=== PATIENT | male | born 1940 | race Caucasian/White ===

== ENCOUNTER 2018-06-05 07:59 | Emergency (ER) | payer OTHER ==
--- NOTE | 2018-06-05 08:59 | RAD REPORT ---
EXAM DESCRIPTION: RAD - Chest Pa And Lat (2 Views) - 06/05/2018 8:44 am CLINICAL HISTORY: Cough and congestion COMPARISON: None. TECHNIQUE: PA and lateral views of the chest were obtained. FINDINGS: The lungs are hyperexpanded with flattened diaphragm. Scattered fibrotic changes are prese nt without a superimposed failure, infiltrate or mass. Interstitial baseline pattern is unknown. Curr ent finding does not appear to be outside of normal range. Heart size is normal and central vasculature is within normal limits. No pleural effusion or pneu mothorax seen. No acute bony finding noted. No aortic abnormality. IMPRESSION: COPD pattern with no acute cardiopulmonary finding confirmed.
--- NOTE | 2018-06-05 09:30 | EDPHYS ---
Physician Documentation [facility] Name: Khanh Thornton Age: 78 yrs Sex: Male : 1940 Arrival Date: 06/05/2018 Time: 08:04 Bed 8 Private MD: Wilmer Mahoney C ED Physician Avery Atwood HPI: 06/05 08:22 This 78 yrs old Male presents to ER via Ambulatory with complaints of Cough, kb Congestion. 08:22 The patient or guardian reports cough, that is intermittent, described as moderate, kb with no sputum. Onset: The symptoms/episode began/occurred 4 day(s) ago. Severity of symptoms: At their worst the symptoms were moderate, in the emergency department the symptoms are unchanged. Modifying factors: The symptoms are alleviated by nothing, the symptoms are aggravated by nothing. Associated signs and symptoms: Pertinent positives: rhinorrhea, sore throat, Pertinent negatives: chest pain, diarrhea, ear ache, fever, nausea, vomiting. The patient has not experienced similar symptoms in the past. The patient has not recently seen a physician. Historical: - Allergies: 08:18 No Known Allergies; tw2 - Home Meds: 08:18 Zocor Oral [Active]; tw2 - PMHx: 08:18 Hyperlipidemia; tw2 - PSHx: 08:18 None; tw2 - Immunization history:: Adult Immunizations. - Social history:: Smoking status: . - Ebola Screening: : Patient denies travel to an Ebola-affected area in the 21 days before illness onset. ROS: 08:21 Constitutional: Negative for fever, chills, and weight loss, Cardiovascular: Negative kb for chest pain, palpitations, and edema, Abdomen/GI: Negative for abdominal pain, nausea, vomiting, diarrhea, and constipation, Back: Negative for injury and pain, MS/Extremity: Negative for injury and deformity, Skin: Negative for injury, rash, and discoloration, Neuro: Negative for headache, weakness, numbness, tingling, and seizure. 08:21 ENT: Positive for rhinorrhea, sinus congestion, sore throat. 08:21 Respiratory: Positive for cough, Negative for dyspnea on exertion, hemoptysis, orthopnea, pleurisy, shortness of breath, sputum production, wheezing. Exam: 08:21 Constitutional: This is a well developed, well nourished patient who is awake, alert, kb and in no acute distress. Head/Face: Normocephalic, atraumatic. ENT: Nares patent. No nasal discharge, no septal abnormalities noted. Tympanic membranes are normal and external auditory canals are clear. Oropharynx with no redness, swelling, or masses, exudates, or evidence of obstruction, uvula midline. Mucous membranes moist. Neck: Trachea midline, no thyromegaly or masses palpated, and no cervical lymphadenopathy. Supple, full range of motion without nuchal rigidity, or vertebral point tenderness. No Meningismus. Chest/axilla: Normal chest wall appearance and motion. Nontender with no deformity. No lesions are appreciated. Cardiovascular: Regular rate and rhythm with a normal S1 and S2. No gallops, murmurs, or rubs. Normal PMI, no JVD. No pulse deficits. Respiratory: Lungs have equal breath sounds bilaterally, clear to auscultation and percussion. No rales, rhonchi or wheezes noted. No increased work of breathing, no retractions or nasal flaring. Abdomen/GI: Soft, non-tender, with normal bowel sounds. No distension or tympany. No guarding or rebound. No evidence of tenderness throughout. Skin: Warm, dry with normal turgor. Normal color with no rashes, no lesions, and no evidence of cellulitis. MS/ Extremity: Pulses equal, no cyanosis. Neurovascular intact. Full, normal range of motion. Neuro: Awake and alert, GCS 15, oriented to person, place, time, and situation. Cranial nerves II-XII grossly intact. Motor strength 5/5 in all extremities. Sensory grossly intact. Cerebellar exam normal. Normal gait. Vital Signs: 08:16 BP 138 / 73; Pulse 84; Resp 18; Temp 98.8(O); Pulse Ox 96% on R/A; Pain 0/10; tw2 09:08 BP 129 / 68; Pulse 75; Resp 17; Pulse Ox 96% on R/A; tw2 MDM: 08:10 Patient medically screened. kb 08:22 Data reviewed: vital signs, nurses notes. Data interpreted: Pulse oximetry: on room air kb is 96 %. Interpretation: normal. 09:29 Counseling: I had a detailed discussion with the patient and/or guardian regarding: the kb historical points, exam findings, and any diagnostic results supporting the discharge/admit diagnosis, lab results, radiology results, the need for outpatient follow up, a family practitioner, to return to the emergency department if symptoms worsen or persist or if there are any questions or concerns that arise at home. 06/05 08:15 Order name: Flu; Complete Time: 09:15 kb 06/05 08:15 Order name: Strep; Complete Time: 09:15 kb 06/05 08:15 Order name: Chest Pa And Lat (2 Views) XRAY; Complete Time: 09:15 kb 06/05 08:43 Order name: Throat Culture EDMS Administered Medications: No medications were administered Disposition: 12:27 Co-signature as Attending Physician, Avery Atwood MD I agree with the assessment and kdr plan of care. Disposition: 06/05/18 09:29 Discharged to Home. Impression: Acute upper respiratory infection, unspecified. - Condition is Stable. - Discharge Instructions: Upper Respiratory Infection, Adult, Ibnr-[id number], Viral Respiratory Infection, Odly-Ro-Kuax. - Prescriptions for Tessalon Perles 100 mg Oral Capsule - take 1 capsule by ORAL route every 8 hours As needed; 15 capsule. - Medication Reconciliation Form, Thank You Letter, Antibiotic Education, Prescription Opioid Use form. - Follow up: Emergency Department; When: As needed; Reason: Worsening of condition. Follow up: Wilmer Mahoney MD; When: 2 - 3 days; Reason: Recheck today's complaints, Continuance of care, Re-evaluation by your physician. - Notes: Use an antihistamine (zyrtec, summer or claritin) and flonase daily Follow up with Dr Mahoney next week Signatures: Dispatcher [employer] EDMS Bess Corado, CORPORATE EVENTS DIRECTOR-C CORPORATE EVENTS DIRECTOR-Avery Brewer MD MD kdr Wise, Tara RN RN tw2 Corrections: (The following items were deleted from the chart) 09:48 09:29 06/05/2018 09:29 Discharged to Home. Impression: Acute upper respiratory tw2 infection, unspecified. Condition is Stable. Forms are Medication Reconciliation Form, Thank You Letter, Antibiotic Education, Prescription Opioid Use. Follow up: Emergency Department; When: As needed; Reason: Worsening of condition. Follow up: Wilmer Mahoney; When: 2 - 3 days; Reason: Recheck today's complaints, Continuance of care, Re-evaluation by your physician. kb
--- NOTE | 2018-06-05 09:30 | ER ---
Nurse's Notes [facility] Name: Khanh Thornton Age: 78 yrs Sex: Male : 1940 Arrival Date: 06/05/2018 Time: 08:04 Bed 8 Private MD: Wilmer Mahoney C Diagnosis: Acute upper respiratory infection, unspecified Presentation: 06/05 08:15 Presenting complaint: Patient states: i have had cough and congestion for 3 days, tried tw2 otc, no relief, not coughing up anything but the cough is keeping me up at night. Transition of care: patient was not received from another setting of care. Resp Distress? No respiratory distress is noted at this time. Onset of symptoms was June 05, 2018. Risk Assessment: Do you want to hurt yourself or someone else? Patient reports no desire to harm self or others. Initial Sepsis Screen: Does the patient meet any 2 criteria? No. Patient's initial sepsis screen is negative. Does the patient have a suspected source of infection? No. Patient's initial sepsis screen is negative. Care prior to arrival: None. 08:15 Method Of Arrival: Ambulatory tw2 08:15 Acuity: EVANS 4 tw2 Triage Assessment: 08:16 General: Appears in no apparent distress. Behavior is calm, cooperative, appropriate tw2 for age. Pain: Denies pain. Respiratory: Reports cough that is Breath sounds are clear bilaterally. Historical: - Allergies: 08:18 No Known Allergies; tw2 - Home Meds: 08:18 Zocor Oral [Active]; tw2 - PMHx: 08:18 Hyperlipidemia; tw2 - PSHx: 08:18 None; tw2 - Immunization history:: Adult Immunizations. - Social history:: Smoking status: . - Ebola Screening: : Patient denies travel to an Ebola-affected area in the 21 days before illness onset. Screenin:17 Abuse screen: Denies threats or abuse. Nutritional screening: No deficits noted. tw2 Tuberculosis screening: No symptoms or risk factors identified. Fall Risk None identified. Assessment: 08:18 General: Appears in no apparent distress. well groomed, Behavior is calm, cooperative, tw2 appropriate for age. Pain: Denies pain. Neuro: Level of Consciousness is awake, alert, obeys commands, Oriented to person, place, time, situation. Cardiovascular: Denies chest pain, shortness of breath, Heart tones S1 S2 Patient's skin is warm and dry. Respiratory: Reports cough that is Airway is patent Respiratory effort is even, unlabored, Respiratory pattern is regular, symmetrical, Breath sounds are clear bilaterally. GI: No signs and/or symptoms were reported involving the gastrointestinal system. : No signs and/or symptoms were reported regarding the genitourinary system. EENT: Reports nasal congestion. Derm: No signs and/or symptoms reported regarding the dermatologic system. Musculoskeletal: Range of motion: intact in all extremities. 09:09 Reassessment: Patient appears in no apparent distress at this time. No changes from tw2 previously documented assessment. Patient and/or family updated on plan of care and expected duration. Pain level reassessed. Patient is alert, oriented x 3, equal unlabored respirations, skin warm/dry/pink. 09:48 Reassessment: Patient appears in no apparent distress at this time. No changes from tw2 previously documented assessment. Patient and/or family updated on plan of care and expected duration. Pain level reassessed. Patient is alert, oriented x 3, equal unlabored respirations, skin warm/dry/pink. Vital Signs: 08:16 BP 138 / 73; Pulse 84; Resp 18; Temp 98.8(O); Pulse Ox 96% on R/A; Pain 0/10; tw2 09:08 BP 129 / 68; Pulse 75; Resp 17; Pulse Ox 96% on R/A; tw2 ED Course: 08:04 Patient arrived in ED. mr 08:04 Wilmer Mahoney MD is Private Physician. mr 08:09 Bess Corado FNP-C is [facility]. kb 08:09 Avery Atwood MD is Attending Physician. kb 08:15 Lexie King, WILIAN is Primary Nurse. tw2 08:16 Triage completed. tw2 08:16 Arm band placed on. tw2 08:17 Bed in low position. Call light in reach. Adult w/ patient. Pulse ox on. NIBP on. tw2 08:24 Flu and/or RSV swab sent to lab. Strep swab sent to lab. mh5 08:24 Strep Sent. mh5 08:24 Flu Sent. mh5 08:41 Chest Pa And Lat (2 Views) XRAY In Process Unspecified. EDMS 09:02 Throat Culture Sent. sv 09:09 No provider procedures requiring assistance completed. Patient did not have IV access tw2 during this emergency room visit. 09:29 Wilmer Mahoney MD is Referral Physician. radha Administered Medications: No medications were administered Outcome: Discharge ordered by . radha 09:48 Discharged to home ambulatory, with significant other. tw2 09:48 Condition: stable 09:48 Discharge instructions given to patient, significant other, Instructed on discharge instructions, follow up and referral plans. medication usage, Demonstrated understanding of instructions, follow-up care, medications, Prescriptions given X 1. 09:48 Patient left the ED. tw2 Signatures: Dispatcher [employer] EDMS Bess Corado, PROFESSOR OF COMMUNICATION-C PROFESSOR OF COMMUNICATION-Ninoska Allen, RN RN Jess Gross Tara, RN RN 2 Yashira Smalls [facility]
== END 2018-06-05 09:48 | disposition home or self-care (01) ==
LOC: ER 07:59
DX: J06.9 Acute upper respiratory infection, unspecified (principal)
CPT/HCPCS: 71046; 87070; 87081; 87804; 99284

== ENCOUNTER 2021-10-04 17:06 | Emergency (ER) | payer OTHER ==
--- OUTSIDE RECORDS SUMMARY | 2021-10-04 17:08 | XMS REPORT | Continuity of Care Document ---
:1940 Author Organization [facility] t Address [address] [place] [address] Dr. Chopra [address] [place] [id number] Care Team Providers Name Role Phone Goldfarb_R Attending Clinician Unavailable Dustin Attending Clinician [phone] Goldfarb_R Admitting Clinician Unavailable Payers Payer Name Policy Type Policy Number Effective Date Expiration Date Soniya HAMMOND (MEDICARE [id number] 2013 REPLACEMENT PPO) 00:00:00 Problems This patient has no known problems. Allergies, Adverse Reactions, Alerts This patient has no known allergies or adverse reactions. Medications This patient has no known medications. Procedures This patient has no known procedures. Encounters Start End Encounter Admission Attending Care Care Encounter Source Date/Time Date/Time Type Type Clinicians Facility Department ID 2021-10-04 2021-10-04 Outpatient Goldfarb_R [facility] [id number] 12:15:00 12:15:00 [id number] 2021-04-09 2021-04-09 Outpatient Goldfarb_R [facility] [id number] 02:19:00 02:19:00 [id number] [facility] 2021-04-09 2021-04-09 Outpatient Dustin, [facility] [id number] 00:00:00 00:00:00 Arash [id number] 2021-04-03 2021-04-03 Outpatient Goldfarb_R [facility] [id number] 11:55:00 11:55:00 [id number] [facility] 2021-03-20 2021-03-20 Outpatient Goldfarb_R [facility] [id number] 11:30:00 11:30:00 [id number] [facility] 2020-10-112020-10-11 Outpatient Goldfarb_R [facility] [id number] 04:31:00 04:31:00 [id number] [facility] 2020-10-04 2020-10-04 [facility] [id number] 12[facility]44:00 12:44:00 [id number] [facility] Results This patient has no known results.
[2021-10-04 17:26] LABS: Absolute Lymphocytes (CBC) 4.2 K/uL (0.7-4.9); Hematocrit 42.3 % (39.6-49.0); RBC Red Blood Cell Count 4.58 M/uL (4.33-5.43)
[2021-10-04 17:30] LABS: Protime INR 1.21
[2021-10-04 17:41] LABS: Potassium 3.8 mmol/L (3.5-5.1)
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
[2021-10-04] MEDS ORDERED: TETANUS & DIPHTHERIA TOX,ADULT 0.5 ML VIAL ONE (18:05)
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
[2021-10-04 18:54] VITALS: TEMP 98.2
[2021-10-04 18:58] VITALS: BP 124/78; O2SAT 98
== END 2021-10-04 18:49 | disposition short-term general hospital (02) ==
LOC: ER 17:06
DX: S26.00XA Unspecified injury of heart with hemopericardium, initial encounter (principal); S31.139A Puncture wound of abdominal wall without foreign body, unspecified quadrant without penetration into peritoneal cavity, initial encounter; W26.0XXA Contact with knife, initial encounter; Z20.822 Contact with and (suspected) exposure to COVID-19; Z23 Encounter for immunization; E78.5 Hyperlipidemia, unspecified
CPT/HCPCS: 85025; 80048; 36415; 85610; 82565; 85730; 71260; 74177; 71045; 90471; 90714; 99285; U0003; Q9967

== ENCOUNTER 2024-01-05 13:57 | Observation (INO) | payer OTHER ==
[2024-01-05 15:44] VITALS: BMI 20.5
[2024-01-05 16:31] LABS: Absolute Lymphocytes (CBC) 1.8 K/uL (0.7-4.9); Absolute Monocytes 1.3 K/uL (0.1-1.3); Absolute Neutrophil 8.1 K/uL (1.8-8.0); Basophils % 0.3 % (0-1.3); Eosinophils % 0.2 % (0-4.4); Hematocrit 55.8 % (39.6-49.0); Hemoglobin 18.4 g/dL (13.6-17.9); MCH 31.8 pg (27.0-35.0); MCHC 32.9 g/dL (32.0-36.0); MCV 96.5 fL (80-100); Monocytes % 11.2 % (3.3-12.3); Neutrophils % 72.3 % (41.7-73.7); Platelets 199 thou/uL (152-406); RBC Red Blood Cell Count 5.78 M/uL (4.33-5.43); Red Cell Distribution Width 14.4 % (12.1-15.2)
--- NOTE | 2024-01-05 16:34 | RAD REPORT ---
EXAM DESCRIPTION: [place] Single View01/05/2024 4:21 pm CLINICAL HISTORY: Hypotension COMPARISON: November 2003 FINDINGS: Lungs are moderately hyperaerated. Postsurgical changes involve the chest The lungs appear clear of acute infiltrate. The heart is normal size IMPRESSION: No acute abnormalities displayed
[2024-01-05] MEDS: NA CHLORIDE 0.9% 1,000 ML IV SCH (16:35)
[2024-01-05 16:52] LABS: Albumin 3.6 g/dL (3.4-5.0); Albumin/Globulin Ratio 1.1 (1.1-1.8); Anion Gap 7.3 mEq/L (5.0-15.0); Bilirubin Total 1.3 mg/dL (0.2-1.0); Globulin 3.3 g/dL (2.3-3.5); Magnesium 2.5 mg/dL (1.6-2.4); Potassium 4.3 mEq/L (3.5-5.1); Protein, Total 6.9 g/dL (6.4-8.2)
[2024-01-05 17:55] LABS: Specific Gravity 1.017 (1.005-1.030); Sqamous Epithelial None Seen /HPF (None Seen); Urine Bacteria None Seen /HPF (<20); Urine Bilirubin NEGATIVE (Negative); Urine Blood Trace (Negative); Urine Clarity Clear (Clear); Urine Color Yellow (Yellow); Urine Culture Reflex Order NOT NEEDED; Urine Glucose NEGATIVE (Negative); Urine Ketones NEGATIVE (Negative); Urine Microscopic Reflex YN ORDER UMIC; Urine Mucus Slight /HPF (None Seen); Urine Nitrite NEGATIVE (Negative); Urine Protein NEGATIVE (Negative); Urine RBC <5 /HPF (None Seen); Urine Urobilinogen Normal (Normal); Urine WBC <5 /HPF (<5); Urine pH 5.5 (5.0-7.0)
[2024-01-05] MEDS ORDERED: ALPRAZOLAM 0.25 MG TABLET PO PRN (21:19)
[2024-01-06 02:29] VITALS: O2SAT 95
[2024-01-06 06:50] LABS: Anion Gap 5.2 mEq/L (5.0-15.0); Potassium 4.2 mEq/L (3.5-5.1)
--- NOTE | 2024-01-06 08:05 | HP ---
Date of Admission: 01/05/2024 Chief Complaint: Feeling weak, fainting type of feeling, and low blood pressure. History Of Present Illness: This is an 83-year-old very pleasant male patient, who had cervical spine fusion surgery done on December 28, 2023, in [place] and day after surgery, he was started on Medrol Dosepak that he started either the day of surgery after coming home or next day. In any case, he finished Medrol Dosepak yesterday and took it as prescribed. He was sent home with Tylenol with Codeine and muscle relaxants that he has not taken any since the surgery after it was prescribed. The patient says yesterday morning, he started to have feeling of being very weak and he felt like he might faint while he was standing or walking. This feeling got somewhat better during the day. Last night, he had lot more symptoms when he went to the bathroom. Denies any fall or head injury. No nausea, vomiting, diarrhea. No blood in urine or stool. No fever. He started to check his blood pressure at home and it was low, systolic blood pressure was 90 to 95 range with pulse rate around 100 to 110. So with this symptoms, he came in to see me today. After he was evaluated, he was admitted to the hospital. At office, the patient was noted to have significant drop in his blood pressure while he was standing compared to sitting and lying down, so arrangements were made for the patient to be admitted directly to the hospital. Allergies: NO KNOWN ALLERGIES. Medications: Alprazolam 0.25 mg at bedtime as needed for sleep, famotidine 40 mg daily at bedtime, fluticasone nasal spray 1 spray each nostril 2 times a day, magnesium oxide 400 mg every other day, metoprolol tartrate 25 mg takes half a tablet 2 times a day, simvastatin 20 mg 1 tablet daily in the evening. Review of Systems: Cardiovascular: As mentioned above. All other systems reviewed and negative. Past Medical History: Significant for allergic rhinitis, restless legs syndrome, hyperlipidemia, sinus tachycardia, gastroesophageal reflux disease, liver cyst, diverticulosis, chronic kidney disease, benign prostatic hypertrophy, high PSA, insomnia, osteoporosis. Past Surgical History: Tonsillectomy, prostate biopsy in 2014 and September 2020, cervical spine surgery on December 28, 2023. Family History: Father had congestive heart failure. Mother had neuropathy. Brother had psoriasis. Social History: Negative for smoking. Use of alcohol, occasional. Physical Examination: Vital Signs: When the patient was evaluated at office, his supine blood pressure was 100/60, sitting blood pressure was 84/60, and standing blood pressure was 60/40. Pulse rate was 114, temperature 97.8, respiratory rate 15, weight 155.4 pounds, height 72 inches. General: Awake, alert, oriented, not in distress. HEENT: Head atraumatic, normocephalic. Conjunctivae nonerythematous. Sclerae white. Mouth, no thrush or edema noted. Ears/Nose, no mass, lesion, discharge noted. Neck: Supple. No JVD, lymph nodes, bruit, thyromegaly noted. Lungs: Bilateral good equal air entry. Clear to auscultation. No rhonchi. No rales. Heart: Normal heart sounds, no murmur or gallop. Abdomen: Soft, bowel sounds normal. No guarding, rigidity, tenderness, mass, hepatosplenomegaly, distention, or bruit noted. Extremities: No leg edema. No calf tenderness. Skin: No rash, ulcer, cellulitis. Lymphatics: No lymph node enlargement in neck, supraclavicular, infraclavicular region. Neuro: No focal neurological deficit. Chest: Unremarkable. External Genitalia: Deferred. Rectal: Deferred. Laboratory Data: White count 11.2, hemoglobin 18.4, platelets 199. Sodium 140, potassium 4.3, chloride 107, bicarb 30, BUN 37, creatinine 1.69, glucose 113, calcium 11, total bilirubin 1.3, AST 12, ALT 33, alkaline phosphatase 65. Random cortisol level 26.17. Urinalysis negative. Impression: 1. Hypotension. 2. Sinus tachycardia. 3. Hyperlipidemia. 4. Gastroesophageal reflux disease. 5. Diverticulosis. 6. Chronic kidney disease, stage IIIB. 7. Benign prostatic hypertrophy. 8. Insomnia. 9. Allergic rhinitis. 10. Acute kidney injury. 11. Volume depletion. Plan: We will go ahead and admit the patient to hospital for further evaluation and management of this problem. The patient has significant problem with orthostatic hypotension and we will go ahead and right now start with IV fluid. My concern is possibility of adrenal insufficiency that we need to rule out and cortisol stimulation test was ordered which will be done tomorrow morning. His home medications will be continued, alprazolam that he takes at bedtime. For insomnia, we will continue that. We will repeat blood work tomorrow morning including his electrolytes and renal function. Total time spent today was 85 minutes that includes evaluation and management done at the office on urgent basis, making arrangements for hospital admissions and management. Details and plan discussed with the patient. I will see him tomorrow morning for followup. XENA/FUAD Voice ID: [id number] MTDD
[2024-01-06] MEDS: COSYNTROPIN 0.25 MG VIAL IV ONE (08:08)
[2024-01-06 12:23] VITALS: BP 130/60; TEMP 98.4
--- NOTE | 2024-01-07 06:59 | DS ---
Date of Discharge: 01/06/2024 Disposition: Discharged to go home. Physical Examination: HEENT: Unremarkable. Lungs: Clear to auscultation. Heart: Sounds normal. Abdomen: Soft. Bowel sounds normal. No guarding, rigidity, tenderness, or distention. Extremities: No leg edema. Laboratory Data: Yesterday upon admission, sodium 140, potassium 4.3, chloride 107, bicarb 30, BUN 37, creatinine 1.69, glucose 113, calcium 11. Liver function tests unremarkable. This morning, sodium 143, potassium 4.2, chloride 113, bicarb 29, BUN 30, creatinine 1.23, glucose 103, calcium 9.8. Random cortisol level yesterday was 26.17 and this was at 4:22 p.m. The patient's cortisol stimulation test was done this morning and his basal cortisol level was 14.1, at 30 minutes it was 32.4, at 60 minutes it was 40.9, and at 90 minutes it was 43.1. This indicates normal test result. Hospital Course: This is an 83-year-old pleasant male patient, who was admitted to the hospital with low blood pressure, feeling weak, and fainting type of feeling with standing or walking. Please see dictated H and P for more information. After the patient was evaluated at office, decision was made to admit him to the hospital with this low blood pressure problem. The patient took Medrol Dosepak after his cervical spine surgery that he started either the day of surgery, after he came home or day after surgery, and he took the last dose the day prior to his admission. After he came to office, we made arrangements for him to get admitted to the hospital with this low blood pressure, high pulse rate, and our concern was along with dehydration, other concern is possibility of adrenal insufficiency. In any case, we gave him IV fluid. He received approximately 2 L of IV fluid and started feeling a lot better. Last night after he was admitted to the hospital and after IV fluid was given to him, he started feeling better and was able to get out of bed and go to the bathroom on his own without any feeling of lightheadedness or dizziness or any fainting type of feeling. Vital signs are stable. Today, after this particular test was done, which was cortical stimulation test and results reviewed, the patient was discharged to go home in stable condition. Discharge Medications And Instructions: 1. Continue all prior home medication. 2. The patient to keep himself well hydrated with 60 to 90 ounces of water on a daily basis. Follow up at my office next week. Final Diagnoses: 1. Volume depletion. 2. Acute kidney injury. 3. Hypotension. 4. Sinus tachycardia. 5. Hyperlipidemia. 6. Gastroesophageal reflux disease. 7. Diverticulosis. 8. Chronic kidney disease, stage IIIB. 9. Benign prostatic hypertrophy. 10. Insomnia. 11. Allergic rhinitis. Total time spent today 40 minutes. XENA/FUAD Voice ID: [id number] Report ID: [id number] ROSALIO
--- NOTE | 2024-01-09 14:12 | EKG ---
Test Date: 2024-01-05 Test Time: 22:04:12 [place]: 33 MEASUREMENT RESULTS: Intervals: Rate: 79 [place]: 180 QRSD: 136 QT: 390 QTc: 447 [place]: P: 71 [place]: 180 QRS: -79 T: 70 INTERPRETIVE STATEMENTS: Normal sinus rhythm Right bundle branch block Left anterior fascicular block Bifascicular block Abnormal ECG Compared to ECG 12/10/2023 11:58:14 Sinus bradycardia no longer present Bifascicular block still present Electronically Signed On 01-09-24 14:09:07 CDT by Pablito Chiang
== END 2024-01-06 13:40 | disposition home or self-care (01) ==
LOC: INTOOBSV 14:41 → 4TH 14:41
PROVIDERS: ADMIT Internal Medicine; ATTEND Internal Medicine
DX: E86.9 Volume depletion, unspecified (principal); N17.9 Acute kidney failure, unspecified; I95.9 Hypotension, unspecified; R00.0 Tachycardia, unspecified; E78.5 Hyperlipidemia, unspecified; K21.9 Gastro-esophageal reflux disease without esophagitis; K57.90 Diverticulosis of intestine, part unspecified, without perforation or abscess without bleeding; N18.32 Chronic kidney disease, stage 3b; N40.0 Benign prostatic hyperplasia without lower urinary tract symptoms; G47.00 Insomnia, unspecified; J30.9 Allergic rhinitis, unspecified
CPT/HCPCS: 85025; 81001; 80048; 36415; 83735; 80053; 82533 ×5; 82024; 71045; J0834; J7030 ×2; 93005; G0378; G0379